=== PATIENT | male | born 1975 | race Caucasian/White ===

== ENCOUNTER 2019-05-03 13:33 | Emergency (ER) | payer OTHER ==
[~2019-05-03] VITALS: Ht 167 cm; Wt 58.7 kg
[~2019-05-03 13:33] MED LIST: ACHD5005 PO; CYCL10TA9 PO; PRD20T PO
--- NOTE | 2019-05-03 14:18 | ED Cough/URI ---
General Chief Complaint: Cough/Cold/Flu Symptoms Stated Complaint: FLU LIKE SYMPTOMS Nursing Triage Note: BODY ACHES AND POSSIBLE FEVER SINCE TUESDAY. SONS WERE DX WITH THE FLU. PT HAS NOT TAKEN ANY MEDS FOR FEVER OR BODY ACHES. Sepsis Screen: No Definite Risk Source: patient Exam Limitations: no limitations History of Present Illness Date Seen by Provider: May 03, 2019 Time Seen by Provider: 14:16 Initial Comments To ER with fever body aches since Tuesday, the patient's son were diagnosed with influenza last week. Timing/Duration: just prior to arrival Severity/Quality: moderate Associated Symptoms: cough, muscle aches, nasal congestion, nasal drainage Allergies and Home Medications Allergies Coded Allergies: No Known Drug Allergies (Unverified , 12/17/11) Home Medications Cyclobenzaprine Hcl 10 Mg Tablet, 1 EACH PO Q8HR PRN Prescribed by: JETT BAILEY on 12/28/11825 Prednisone 20 Mg Tab, 40 MG PO DAILY Prescribed by: JETT BAILEY on 12/28/11825 Patient Home Medication List Home Medication List Reviewed: Yes Review of Systems Review of Systems Constitutional: see HPI, chills EENTM: see HPI, nose congestion Respiratory: see HPI, cough Cardiovascular: no symptoms reported Genitourinary: no symptoms reported Musculoskeletal: no symptoms reported Skin: no symptoms reported Psychiatric/Neurological: No Symptoms Reported Hematologic/Lymphatic: No Symptoms Reported Immunological/Allergic: no symptoms reported Past Mypalua-Heslul-Mxpjbb Hx Patient Social History Alcohol Use: Denies Use Recreational Drug Use: No Smoking Status: Current Everyday Smoker Recent Foreign Travel: No Contact w/Someone Who Travel: No Recent Infectious Disease Expo: No Recent Hopitalizations: No Immunizations Up To Date Date of Influenza Vaccine: Dec 17, 2011 Past Medical History Surgeries: Yes Orthopedic Respiratory: No Cardiac: No Neurological: No Genitourinary: No Gastrointestinal: No Musculoskeletal: No Endocrine: No HEENT: No Cancer: No Psychosocial: No Integumentary: No Blood Disorders: No Physical Exam Vital Signs - First Documented 05/03/19 13:40 Temp 35.1 Pulse 84 Resp 16 B/P (MAP) 117/78 (91) Pulse Ox 100 O2 Delivery Room Air Capillary Refill : Less Than 3 Seconds Height: '" Weight: lbs. oz. kg; 21.00 BMI Method:Stated General Appearance: WD/WN, no apparent distress Eyes: Bilateral Eye Normal Inspection, Bilateral Eye PERRL, Bilateral Eye EOMI HEENT: PERRL/EOMI, normal ENT inspection Neck: non-tender, full range of motion Respiratory: no respiratory distress, no accessory muscle use Cardiovascular: regular rate, rhythm, no murmur Gastrointestinal: non tender Neurologic/Psychiatric: alert, normal mood/affect, oriented x 3 Skin: normal color, warm/dry Progress/Results/Core Measures Suspected Sepsis Recent Fever Within 48 Hours: Yes Infection Criteria Present: Suspected New Infection New/Unexplained Altered Menta: No Sepsis Screen: No Definite Risk SIRS Temperature: Pulse: 84 Respiratory Rate: 16 Blood Pressure 117 /78 Mean: 91 Results/Orders Micro Results Microbiology 05/03/19 Influenza Types A,B Antigen (VIRY) - Final, Complete My Orders Orders - ARACELI MUIR APRN Influenza A And B Antigens (05/03/19 13:47) Vital Signs/I&O 05/03/19 13:40 Temp 35.1 Pulse 84 Resp 16 B/P (MAP) 117/78 (91) Pulse Ox 100 O2 Delivery Room Air Capillary Refill : Less Than 3 Seconds Blood Pressure Mean: 91 Departure Impression Primary Impression: Influenza-like symptoms Disposition: 01 HOME, SELF-CARE Condition: Stable Departure-Patient Inst. Decision time for Depature: 14:18 Referrals: NO,LOCAL PHYSICIAN (PCP/Family) Primary Care Physician Patient Instructions: Flu Add. Discharge Instructions: 1. Tylenol and ibuprofen for fever and body aches 2. Return here for any concerns 3. All discharge instructions reviewed with patient and/or family. Voiced understanding. Work/School Note: Work Release Form Date Seen in the Emergency Department: May 03, 2019 Return to Work: May 07, 2019 ARACELI MUIR APRN May 03, 2019 14:18
[2019-05-03 14:24] VITALS: BP 117/78
== END 2019-05-03 14:24 | disposition home or self-care (01) ==
LOC: ER 13:33 → EDUNIT# 13:33 → ER 14:24
DX: R09.89 Other specified symptoms and signs involving the circulatory and respiratory systems (principal); F17.200 Nicotine dependence, unspecified, uncomplicated; Z79.52 Long term (current) use of systemic steroids
CPT/HCPCS: 87804

== ENCOUNTER 2023-01-26 11:05 | Emergency (ER) | payer SELFPAY ==
[~2023-01-26] VITALS: Ht 165 cm; Wt 63.0 kg
[2023-01-26 11:40] LABS: BASOPHILS # (AUTO) 0.2 10^3/uL (0.0-0.1); BASOPHILS % (AUTO) 0 % (0-10); EOSINOPHILS # (AUTO) 0.2 10^3/uL (0.0-0.3); EOSINOPHILS % (AUTO) 0 % (0-10); HEMATOCRIT 27 % (40-54); HEMOGLOBIN 9.2 g/dL (13.3-17.7); LYMPHOCYTES # (AUTO) 2.2 10^3/uL (1.0-4.0); LYMPHOCYTES % (AUTO) 5 % (12-44); MEAN CORPUSCULAR HEMOGLOBIN 25 pg (25-34); MEAN CORPUSCULAR HGB CONC 34 g/dL (32-36); MEAN CORPUSCULAR VOLUME 75 fL (80-99); MEAN PLATELET VOLUME 8.8 fL (9.0-12.2); MONOCYTES % (AUTO) 7 % (0-12); NEUTROPHILS # (AUTO) 36.6 10^3/uL (1.8-7.8); NEUTROPHILS % (AUTO) 85 % (42-75); PLATELET COUNT 685 10^3/uL (130-400)
--- NOTE | 2023-01-26 11:41 | ED Respiratory ---
General Chief Complaint: Cough/Cold/Flu Symptoms Stated Complaint: PREVIOUS DX OF PNEUMONIA, TIGHTNESS OF CHEST Nursing Triage Note: ARRIVED VIA AMB TO ROOM 07. DX WITH PNEUMONIA X2 WEEKS AGO. FINISHED ABX BUT DOES NOT FEEL BETTER. COMPLAINS OF CHEST TIGHTNESS, COUGH, SOA. DAD STATES PT HAS COUGHED UP BLOOD. PT THINKS HE HAS LOST 20# IN THE LAST TWO WEEKS. Source: patient Exam Limitations: no limitations History of Present Illness Date Seen by Provider: Jan 26, 2023 Time Seen by Provider: 11:20 Initial Comments 47-year-old male presents the emergency department today for shortness of breath. Symptoms present for about 3 weeks. He was seen at an outlying emergency department and diagnosed with pneumonia, discharged with antibiotics and other medications. He states he has not gotten any better. He claims he has lost about 20 pounds over the span of this time. He has cough productive of sputum and occasionally some trace blood. He believes he has had fevers at home but does not have a thermometer to check. He is also feeling generally weak. He has some intermittent chest tightness over this time as well. No unilateral lower extremity pain, swelling. No history of DVT, PE. He is a smoker but states he has not been able to smoke since the onset of his current symptoms. All other systems reviewed and negative except documented per HPI. Voice recognition software was used to help create this chart Allergies and Home Medications Allergies Coded Allergies: No Known Drug Allergies (Unverified , 12/17/11) Patient Home Medication List Home Medication List Reviewed: Yes Cyclobenzaprine Hcl (Cyclobenzaprine Hcl) 10 Mg Tablet, 1 EACH PO Q8HR PRN Prescribed by: JETT BAILEY on 12/28/11825 Prednisone (Prednisone) 20 Mg Tab, 40 MG PO DAILY Prescribed by: JETT BAILEY on 12/28/11825 Review of Systems Review of Systems Constitutional: see HPI Past Mtvqcqh-Wyiqkc-Tyusel Hx Patient Social History Tobacco Use?: Yes Tobacco type used: Cigarettes Smoking Status: Current Everyday Smoker Substance use?: Yes Substance type: Marijuana Alcohol Use?: Yes Alcohol Frequency: Once in a while Past Medical History Surgeries: Yes Orthopedic Respiratory: No Cardiac: No Neurological: No Genitourinary: No Gastrointestinal: No Musculoskeletal: No Endocrine: No HEENT: No Cancer: No Psychosocial: No Integumentary: No Blood Disorders: No Physical Exam Vital Signs - First Documented 01/26/23 11:10 Temp 37.2 Pulse 121 Resp 16 B/P (MAP) 80/69 (73) Pulse Ox 99 O2 Delivery Room Air Capillary Refill : Less Than 3 Seconds Height: '" Weight: lbs. oz. kg; 23.00 BMI Method:Stated General Appearance: WD/WN, no apparent distress HEENT: normal ENT inspection, pharynx normal Neck: supple Respiratory: chest non-tender, no respiratory distress, other (Course breath sounds bilaterally without any focal adventitial lung sounds.) Cardiovascular: no murmur, tachycardia, other (Borderline hypotension, 101/73) Gastrointestinal: normal bowel sounds, non tender, soft Extremities: non-tender, no pedal edema, no calf tenderness, normal capillary refill Neurologic/Psychiatric: alert, oriented x 3 Skin: normal color, warm/dry Focused Exam Lactate Level 01/26/23 11:30: Lactic Acid Level 3.78*H 01/26/23 12:23: Lactic Acid Level 1.43 Lactic Acid Level Laboratory Tests Test 01/26/23 11:30 01/26/23 12:23 Lactic Acid Level 3.78 MMOL/L (0.50-2.00) *H 1.43 MMOL/L (0.50-2.00) Procedures/Interventions Lumen: triple Central Line Procedure: betadine prep Position: femoral (R) Anesthesia: Lidocaine Volume Anesthetic (ccs): 10 Complications: none Post Position: sutured Progress/Results/Core Measures Suspected Sepsis SIRS Temperature: Pulse: 121 Respiratory Rate: 16 Laboratory Tests 01/26/23 11:30: White Blood Count 43.1*H Blood Pressure 80 /69 Mean: 73 01/26/23 11:30: Lactic Acid Level 3.78*H 01/26/23 12:23: Lactic Acid Level 1.43 Laboratory Tests 01/26/23 11:30: Creatinine 0.62, Platelet Count 685H, Total Bilirubin 0.5 Results/Orders Lab Results Laboratory Tests Test 01/26/23 11:30 01/26/23 11:57 01/26/23 12:23 Range/Units White Blood Count 43.1 *H 4.3-11.0 10^3/uL Red Blood Count 3.66 L 4.30-5.52 10^6/uL Hemoglobin 9.2 L 13.3-17.7 g/dL Hematocrit 27 L 40-54 % Mean Corpuscular Volume 75 L 80-99 fL Mean Corpuscular Hemoglobin 25 25-34 pg Mean Corpuscular Hemoglobin Concent 34 32-36 g/dL Red Cell Distribution Width 14.5 10.0-14.5 % Platelet Count 685 H 130-400 10^3/uL Mean Platelet Volume 8.8 L 9.0-12.2 fL Immature Granulocyte % (Auto) 2 % Neutrophils (%) (Auto) 85 H 42-75 % Lymphocytes (%) (Auto) 5 L 12-44 % Monocytes (%) (Auto) 7 0-12 % Eosinophils (%) (Auto) 0 0-10 % Basophils (%) (Auto) 0 0-10 % Neutrophils # (Auto) 36.6 H 1.8-7.8 10^3/uL Lymphocytes # (Auto) 2.2 1.0-4.0 10^3/uL Monocytes # (Auto) 3.0 H 0.0-1.0 10^3/uL Eosinophils # (Auto) 0.2 0.0-0.3 10^3/uL Basophils # (Auto) 0.2 H 0.0-0.1 10^3/uL Immature Granulocyte # (Auto) 0.9 H 0.0-0.1 10^3/uL Neutrophils % (Manual) 82 % Lymphocytes % (Manual) 4 % Monocytes % (Manual) 9 % Eosinophils % (Manual) 1 % Basophils % (Manual) 0 % Metamyelocytes % 1 % Band Neutrophils 3 % Polychromasia SLIGHT Hypochromasia SLIGHT Anisocytosis SLIGHT Target Cells SLIGHT Sodium Level 127 L 135-145 MMOL/L Potassium Level 3.5 L 3.6-5.0 MMOL/L Chloride Level 92 L 98-107 MMOL/L Carbon Dioxide Level 23 21-32 MMOL/L Anion Gap 12 5-14 MMOL/L Blood Urea Nitrogen 9 7-18 MG/DL Creatinine 0.62 0.60-1.30 MG/DL Estimat Glomerular Filtration Rate 119 BUN/Creatinine Ratio 15 Glucose Level 146 H 70-105 MG/DL Lactic Acid Level 3.78 *H 1.43 0.50-2.00 MMOL/L Calcium Level 8.9 8.5-10.1 MG/DL Corrected Calcium 10.0 8.5-10.1 MG/DL Magnesium Level 1.8 1.6-2.4 MG/DL Total Bilirubin 0.5 0.1-1.0 MG/DL Aspartate Amino Transf (AST/SGOT) 33 5-34 U/L Alanine Aminotransferase (ALT/SGPT) 22 0-55 U/L Alkaline Phosphatase 187 H 40-136 U/L Total Protein 5.9 L 6.4-8.2 GM/DL Albumin 2.6 L 3.2-4.5 GM/DL Influenza Type A (RT-PCR) Not Detected Not Detecte Influenza Type B (RT-PCR) Not Detected Not Detecte SARS-CoV-2 RNA (RT-PCR) Not Detected Not Detecte My Orders Orders - CATIESASHA DO Ekg Tracing (01/26/23 11:16) Cbc And Automated Diff (01/26/23 11:32) Comprehensive Metabolic Panel (01/26/23 11:32) Blood Culture (01/26/23 11:32) Sputum Culture (01/26/23 11:32) Chest 1 View, Ap/Pa Only (01/26/23 11:32) Ed Iv/Invasive Line Start (01/26/23 11:32) Vital Signs Adult Sepsis Patie Q15M (01/26/23 11:32) Lactic Acid Analyzer (01/26/23 11:32) Covid 19 Inhouse Test (01/26/23 11:32) Influenza A And B By Pcr (01/26/23 11:32) Ns Iv 1000 Ml (Ns Iv 1000 Ml) (01/26/23 11:45) Manual Differential (01/26/23 11:30) Piperacillin/Tazobactam (Piperacillin/Ta (01/26/23 12:00) Vancomycin Injection (Vancomycin Injecti (01/26/23 12:00) Ct Angio Chest W (01/26/23 11:57) Ns Iv 1000 Ml (Ns Iv 1000 Ml) (01/26/23 12:10) Iohexol Injection (Omnipaque 350 Mg/Ml 1 (01/26/23 12:15) Ns (Ivpb) 100 Ml (Sodium Chloride 0.9% 1 (01/26/23 12:15) Magnesium (01/26/23 12:14) Ns Iv 1000 Ml (Ns Iv 1000 Ml) (01/26/23 13:24) Ns Iv 1000 Ml (Ns Iv 1000 Ml) (01/26/23 15:45) Norepinephrine 8 Mg/250 Ml (Norepinephri (01/26/23 16:12) Norepinephrine 8 Mg/250 Ml (Norepinephri (01/26/23 16:15) Medications Given in ED Current Medications Medications Dose Ordered Sig/Arianne Route Start Time Stop Time Status Last Admin Dose Admin Iohexol 100 ml ONCE ONCE IV 01/26/23 12:15 01/26/23 12:16 DC 01/26/23 13:00 75 ML Piperacillin Sod/ Tazobactam Sod 4.5 gm/Sodium Chloride 100 ml @ 200 mls/hr ONCE ONCE IV 01/26/23 12:00 01/26/23 12:29 DC 01/26/23 13:33 200 MLS/HR Sodium Chloride 100 ml ONCE ONCE IV 01/26/23 12:15 01/26/23 12:16 DC 01/26/23 13:00 70 ML Vancomycin HCl 1000 mg/Sodium Chloride 250 ml @ 250 mls/hr ONCE ONCE IV 01/26/23 12:00 01/26/23 12:59 DC 01/26/23 12:19 250 MLS/HR Vital Signs/I&O 01/26/23 01/26/23 01/26/23 01/26/23 11:10 16:20 16:32 16:35 Temp 37.2 Pulse 121 94 66 75 Resp 16 B/P (MAP) 80/69 (73) 81/58 151/93 139/91 Pulse Ox 99 O2 Delivery Room Air 01/26/23 01/26/23 01/26/23 01/26/23 16:40 16:43 16:45 16:47 Pulse 79 85 87 86 B/P (MAP) 122/87 132/87 131/87 126/82 01/26/23 01/26/23 01/26/23 01/26/23 16:49 16:51 16:52 16:55 Pulse 90 92 93 100 B/P (MAP) 124/85 124/88 110/81 113/71 01/26/23 16:57 Pulse 102 B/P (MAP) 108/76 Capillary Refill : Less Than 3 Seconds Blood Pressure Mean: 73 ECG Comment Sinus rhythm with a rate of 126 bpm. Normal intervals. Normal axis. T wave inversion in lead III otherwise no ST or T wave abnormalities and no ectopy. No STEMI. Critical Care Note Critical Care Total Time (minutes) 120 Departure Communication (Admissions) Patient was borderline hypotensive during the majority of his emergency department stay. During the latter of his emergency department stay he became significantly hypotensive with blood pressures in the 80s and maps around 50-60. We started him on Levophed at this time. He has received broad-spectrum antibiotics, Zosyn and vancomycin. He is also received 3 L total of IV fluids. CT scan shows significant left upper lobe mass with compression of the bronchus in this area. Given his leukocytosis, elevated lactic acid and hypotension I am concerned about a possible postobstructive pneumonia as well and likely sepsis. Spoke to Dr Cruz, [facility] Emergency department who accepts transfer at 1445. Pending transportation at this time. Impression Primary Impression: Sepsis Qualified Codes: A41.9 - Sepsis, unspecified organism Additional Impressions: Lung mass Hyponatremia Leukocytosis Qualified Codes: D72.829 - Elevated white blood cell count, unspecified Pneumonia Qualified Codes: J18.9 - Pneumonia, unspecified organism Disposition: XF [facility] Condition: Critical Departure-Patient Inst. Referrals: NO,LOCAL PHYSICIAN (PCP/Family) Primary Care Physician SASHA HADDAD DO Jan 26, 2023 11:41
[2023-01-26] MEDS ORDERED: NS IV 1000 ML 1,000 ML IV SCH ×2 (11:45→15:45)
[2023-01-26 11:49] LABS: WHITE BLOOD COUNT 43.1 10^3/uL (4.3-11.0)
[2023-01-26 11:57] LABS: ALBUMIN 2.6 GM/DL (3.2-4.5); BILIRUBIN,TOTAL 0.5 MG/DL (0.1-1.0); CALCIUM 8.9 MG/DL (8.5-10.1); CREATININE SERUM 0.62 MG/DL (0.60-1.30); POTASSIUM 3.5 MMOL/L (3.6-5.0); TOTAL PROTEIN 5.9 GM/DL (6.4-8.2)
[2023-01-26] MEDS ORDERED: PIPERACILLIN/Tazobactam 4.5 GM in NS (IVPB) 100 ML 100 ML IV ONE (12:00)
[2023-01-26] MEDS ORDERED: VANCOMYCIN INJECTION 1,000 MG in NS (IVPB) 250 ML 250 ML IV ONE (12:00)
[2023-01-26] MEDS ORDERED: NS IV 1000 ML 1,000 ML IV STA ×2 (12:10→13:24)
[2023-01-26] MEDS ORDERED: IOHEXOL 350 MG/ML 100 ML (OMNIPAQUE 350) VIAL IV ONE (12:15)
[2023-01-26] MEDS ORDERED: NS 100 ML (IVPB) BAG IV ONE (12:15)
--- NOTE | 2023-01-26 12:20 | Diagnostic Imaging Report ---
CHEST 1 VIEW, AP/PA ONLY Indication: Dyspnea Comparison: None available. Findings: Confluent consolidation and opacification left upper hemithorax. No mediastinal shift. Cardiac silhouette is grossly normal. Impression: 1. Abnormal appearance of left upper hemithorax which could be due to pneumonia or mass with associated loculated pleural effusion. Recommend CT chest with IV contrast for further assessment. Dictated by: Dictated on workstation # [id number]
[2023-01-26 12:39] LABS: ANISOCYTOSIS SLIGHT; BAND NEUTROPHILS 3 %; BASOPHILS % (MANUAL) 0 %; EOSINOPHILS % (MANUAL) 1 %; HYPOCHROMASIA SLIGHT; LYMPHOCYTES % (MANUAL) 4 %; METAMYELOCYTES % 1 %; MONOCYTES % (MANUAL) 9 %; NEUTROPHILS % (MANUAL) 82 %; POLYCHROMASIA SLIGHT; TARGET CELLS SLIGHT
--- NOTE | 2023-01-26 13:49 | Diagnostic Imaging Report ---
PROCEDURE: CT angiography of the chest with contrast. TECHNIQUE: Multiple contiguous axial images were obtained through the chest after uneventful bolus administration of intravenous contrast. 3D reconstructed CTA MIP acquisitions were also performed. Auto Exposure Controls were utilized during the CT exam to meet ALARA standards for radiation dose reduction. DATE: January 26, 2023. INDICATION: 47-year-old male, weight loss, cough, and shortness of breath. COMPARISON: Chest radiograph January 26, 2023. FINDINGS: There is a very large mass involving the left upper lobe directly extending into the left hilar region which measures roughly 12.3 x 15.1 cm in axial extent. There is prominent associated narrowing of the left upper lobe pulmonary artery branches. The mass does appear to extend to involve portions of the superior aspect of the left lower lobe, best demonstrated on sagittal image 138. There are findings of emphysema. There is complete occlusion of the proximal aspect of the left upper lobe bronchus. There is no pneumothorax. There is no pleural effusion. There is no additional identified pulmonary nodule or lung mass. There is a bulky subcarinal lymph node and/or direct extension of the above mentioned mass measuring 7.2 x 4.8 cm in axial extent as measured on axial image 85. There is also bulky left paratracheal adenopathy measuring roughly 5.2 x 3.1 cm in axial extent on axial image 68. There is a right hilar lymph node on axial image 81 which measures 14 mm in short axis. The heart is not enlarged. There is no identified pericardial effusion. There is prominent mass effect and narrowing of the left upper lobe pulmonary artery branches as mentioned above. There is no identified pulmonary embolus. There is a left adrenal mass on axial image 156 measuring 4.7 x 3.8 cm in size. Internal attenuation on this post contrast exam is 38 Hounsfield units which is indeterminate. There is no identified aggressive bone lesion. IMPRESSION: 1. Very large left upper lobe mass directly extending into the left hilar region and also likely involving small segments of the superior aspect of the left lower lobe, highly likely reflecting malignancy. Workup for definitive diagnosis is needed. There is complete occlusion of the proximal aspect of the left upper lobe bronchus and severe narrowing of the left upper lobe pulmonary artery branches. 2. 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 3. Left adrenal mass which is concerning for a potential metastatic lesion although is indeterminate. Further evaluation with dedicated adrenal mass protocol CT or MRI without and with intravenous contrast may be beneficial. Dictated by: Dictated on workstation # [id number]
[2023-01-26] MEDS ORDERED: NOREPINEPHRINE 8 MG/250 ML 250 ML IV ONE (16:12)
[2023-01-26] MEDS ORDERED: NOREPINEPHRINE 8 MG/250 ML 250 ML IV SCH (16:15)
[2023-01-26 18:03] VITALS: BP 105/79
== END 2023-01-26 18:16 | disposition short-term general hospital (02) ==
LOC: EDUNIT# 11:05 → ER 11:09
DX: A41.9 Sepsis, unspecified organism (principal); J18.9 Pneumonia, unspecified organism; E87.1 Hypo-osmolality and hyponatremia; R91.8 Other nonspecific abnormal finding of lung field; R03.1 Nonspecific low blood-pressure reading; F17.210 Nicotine dependence, cigarettes, uncomplicated
CPT/HCPCS: 36415; 36556; 71045; 71275; 80053; 83605; 83735; 85007; 85027; 87040; 87636; 93005; 96361; 96365; 96366; 96367; 96375

== ENCOUNTER 2023-02-10 12:46 | Emergency (ER) | payer SELFPAY ==
[2023-02-10] MEDS ORDERED: CATHETER FLUSH 10 ML SYR IVP ONE (12:48)
[2023-02-10] MEDS ORDERED: EPINEPHrine 0.1 MG/ML 10 ML EMERGENCY SYR INJ ONE (12:48)
[2023-02-10] MEDS ORDERED: DEXTROSE 50% 50 ML (IMS) SYR INJ ONE (12:48)
--- NOTE | 2023-02-10 13:31 | Diagnostic Imaging Report ---
EXAMINATION: Chest 1 view HISTORY: Evaluation post code. COMPARISON: 01/26/2023 FINDINGS: Heart size and pulmonary vasculature are stable. There is near complete opacification of the left upper lobe. There is prominent perihilar and right basilar opacities. There is a right apical pneumothorax with 3 cm of pleural separation. May be small left and trace right pleural effusions present. Endotracheal tube is present but the дмитрий is not visualized for a reference location. Visualized osseous structures are unremarkable. There is overlying external device which mildly limits evaluation of certain locations. IMPRESSION: 1. New right apical pneumothorax with 3 cm of pleural separation. 2. Redemonstrated near-complete opacification of the left lung with some sparing of the left lung base. 3. Trace bilateral pleural effusions. Critical finding. Results communicated to Dr. Davidson in the ER by Dr. Haris Ashford at 1:25 PM on 02/10/2023. Dictated by: Dictated on workstation # [id number]
--- NOTE | 2023-02-10 14:36 | ED CPR ---
HPI-CPR General Chief Complaint: Code Blue Stated Complaint: CODE Nursing Triage Note: PT ARRIVED PER EMS, CPR INPROGRESS. PT WAS FOUND UNRESPONSIVE IN CAR. UNKNOWN DOWN TIME. PT HAS ET TUBE IN PLACE AND IS BEING BAGGED. CPR CONT. PT HAS IV NS INFUSING IN L AC. PT HAS IO IN R TIBIA. PT HAS HAD 6 EPI, 1 BICARB, 1 AMP D50 BY EMS. PT WAS ASYSTOLE UPON EMS ARRIVAL AND IS PEA UPON ARRIVAL TO ED. Source of Information: EMS, Family, Old Records Exam Limitations: Other (unresponsive) History of Present Illness Date Seen by Provider: Feb 10, 2023 Allergies and Home Medications Allergies Coded Allergies: No Known Drug Allergies (Unverified , 12/17/11) Patient Home Medication List Cyclobenzaprine Hcl (Cyclobenzaprine Hcl) 10 Mg Tablet, 1 EACH PO Q8HR PRN Prescribed by: JETT BAILEY on 12/28/11825 Prednisone (Prednisone) 20 Mg Tab, 40 MG PO DAILY Prescribed by: JETT BAILEY on 12/28/11825 Past Feoljne-Ucznlz-Qdyuig Hx Patient Social History Smoking Status: Unknown if Ever Smoked Substance use?: Unable to obtain Alcohol Use?: Unable to obtain Past Medical History Surgery/Hospitalization HX: RECENT SEPSIS AND POSSIBLE DX OF CANCER W METS Surgeries: Yes Orthopedic Respiratory: No Cardiac: No Neurological: No Genitourinary: No Gastrointestinal: No Musculoskeletal: No Endocrine: No HEENT: No Cancer: No Psychosocial: No Integumentary: No Blood Disorders: No Physical Exam Vital Signs Vital Signs - First Documented 02/10/23 12:47 Temp 36.5 Capillary Refill : Height, Weight, BMI Height: '" Weight: lbs. oz. kg; 23.00 BMI Method:Stated Procedures/Interventions Tube Size: 7.00 Progress/Results/Core Measures Results/Orders Lab Results Laboratory Tests Test 02/10/23 12:54 02/10/23 13:07 Range/Units Glucometer 29 *L 38 *L 70-110 MG/DL My Orders Orders - KAYLIE LAWRENCE MD Chest 1 View, Ap/Pa Only (02/10/23 ) D50w (Emergency) Syringe (Dextrose 50% 5 (02/10/23 12:48) Epinephrine Emergency Syringe (Epinephr (02/10/23 12:48) Sodium Chloride Flush (Catheter Flush Sy (02/10/23 12:48) Vital Signs/I&O 02/10/23 12:47 Temp 36.5 B/P (MAP) Departure Departure-Patient Inst. Referrals: NO,LOCAL PHYSICIAN (PCP/Family) Primary Care Physician KAYLIE LAWRENCE MD Feb 10, 2023 14:36
== END 2023-02-11 06:08 | disposition expired ==
LOC: EDUNIT# 12:46 → ER 12:47
DX: R40.4 Transient alteration of awareness (principal)
CPT/HCPCS: 31500; 36680; 71045; 82947; 99291